=== PATIENT | female | born 1995 | race Caucasian/White ===

== ENCOUNTER 2024-05-31 20:25 | Emergency (ER) | payer BC, SELFPAY ==
[2024-05-31 21:00] VITALS: BP 142/76; PULSE 81; RESP 16; TEMP 36.8; O2SAT 97; BMI 47.9
[2024-06-01] VITALS: BP 132/86; PULSE 78; RESP 16; TEMP 37.1; O2SAT 96
--- NOTE | 2024-06-01 00:30 | ED.GENADULT ---
HPI - General Adult General Chief complaint: Wound/Laceration Stated complaint: rt ring finger cut Time Seen by Provider: 05/31/24 23:52 Source: patient, RN notes reviewed and old records reviewed Mode of arrival: ambulatory Limitations: no limitations History of Present Illness ED Provider: Carla HPI narrative: 28-year-old female presents for evaluation of a right 4th finger laceration. Patient reports that she was cleaning a kitchen knife when she accidentally cut her right 4th finger near the fingertip. This happened 45 minutes prior to arrival. Bleeding is controlled. She does describe some numbness and tingling to the right 4th fingertip She has no other complaints or concerns Unknown last tetanus Related Data Allergies Allergy/AdvReac Type Severity Reaction Status Date / Time No Known Allergies Allergy Verified 05/31/24 21:02 Review of Systems Constitutional: Constitutional: Denies body ache(s), Denies chills and Denies fever(s) Eyes: Eyes: Denies blurry vision ENT: Denies vertigo Integumentary/Breasts: Skin/Breast: Reports wounds Neurologic: Denies vertigo PMFSH Social History Social History Advance Directives: No Advance Directives Information Provided: No Physical Exam ED Vital Signs: Vital Signs - 24 hr 05/31/24 21:00 06/01/24 00:00 Temperature 98.3 F 98.7 F Pulse Rate 81 78 Respiratory Rate 16 16 Blood Pressure 142/76 H 132/86 Pulse Oximetry 97 96 Oxygen Delivery Method Room Air Room Air BMI result Body Mass Index 47.9 Const General: healthy appearing, comfortable, no acute distress, alert and awake Nutritional Appearance: well nourished Orientation/consciousness: patient oriented x3 HENMT Head: Yes normocephalic and Yes atraumatic Eyes Eyelids: Yes eyelids normal Conjunctivae: conjunctivae normal Sclerae: sclerae normal Corneas: corneas normal Pupils: Equal, round and reactive pupils present EOM: EOMs intact bilaterally Resp Effort & Inspection: normal respiratory effort, able to speak in complete sentences and not labored Skin Other: 2 cm curvilinear laceration on the ulnar side of the right 4th fingertip. Bleeding controlled General skin exam: elasticity normal Neuro General: patient oriented x3 Cranial nerves: Yes Equal, round and reactive pupils present and Yes Bilaterally intact EOM present Cognition (Neuro): normal cognition Extrem Other: Moving all extremities well without any obvious deformities Medications Administered Discontinued Medications Generic Name Dose Route Start Last Admin Trade Name Keeganq PRN Reason Stop Dose Admin Diphtheria/Tetanus/Acell Pertussis 0.5 ml 06/01/24 00:50 06/01/24 00:56 Diphth,Pertus(Acell),Tet Adult 0.5 Ml Syringe IM 06/01/24 00:51 0.5 ml .ONCE ONE Administration Lidocaine HCl 10 ml 06/01/24 00:25 06/01/24 00:57 Lidocaine Hcl 1 % 10 Ml Vial INFILTRATI 06/01/24 00:26 10 ml ONCE ONE Administration Procedures Laceration Laceration 1: Site: hand (4th finger) Side (If applicable): right Size (cm): 2 Description: linear and flap Depth: simple, single layer Local Anesthetic: lidocaine 1% Amount of anesthesia used (mL): 3 Pre-repair: wound explored, irrigated extensively, deep structures intact and extensive debridement Skin layer closed with: nylon Size (cm): 5-0 Number of sutures: 4 Technique: simple, interrupted Medical Decision Making Medical Decision Making MDM Narrative: 28-year-old female presents for evaluation of laceration to the right 4th finger. See procedure note for wound repair. She has full range of motion to the finger at the MCP PIP and PIP joints. There is no evidence of tendon compromise. No evidence of neurovascular compromise either. Tetanus updated as well Differential Diagnosis Differential Diagnoses: The differential diagnosis associated with the presentation includes Laceration Skin tear Puncture wound Acute wound Discharge Plan Discharge Clinical Impression: Laceration Patient Disposition: Home, Self-Care Instructions: Finger Laceration (ED) Additional Instructions: You had 4 sutures placed today. These can be removed in 10-14 days. Keep the finger clean and dry. You may apply topical antibiotic every other day Your tetanus was updated today Print Language: Turkish
[2024-06-01] MEDS: Diphth,Pertus(ACell),Tet Adult 0.5 ML SYRINGE IM (00:56)
[2024-06-01] MEDS: Lidocaine HCl 1 % 10 ML VIAL INFILTRATI (00:57)
[2024-06-01 02:00] VITALS: BP 140/80; PULSE 76; RESP 18; TEMP 37.4; O2SAT 96
[2024-06-01] MEDS: Ibuprofen 600 MG TABLET PO (02:08)
[2024-06-01 04:44] VITALS: BP 140/80; PULSE 76; RESP 18; TEMP 37.4; O2SAT 96
== END 2024-06-01 02:05 | disposition home or self-care (01) ==
PROVIDERS: Emergency Provider Internal Medicine
DX: S61.214A Laceration without foreign body of right ring finger without damage to nail, initial encounter (principal); X58.XXXA Exposure to other specified factors, initial encounter; W26.0XXA Contact with knife, initial encounter; Y93.G3 Activity, cooking and baking; Y92.89 Other specified places as the place of occurrence of the external cause; Y99.8 Other external cause status; Z23 Encounter for immunization
CPT/HCPCS: 12041; 90471; 90715; 99284